=== PATIENT | male | born 1960 | race Caucasian/White ===

== ENCOUNTER 2017-10-12 16:02 | Emergency (ER) | payer BC ==
[2017-10-12 16:11] VITALS: RESP 18
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
[2017-10-12 23:17] VITALS: BP 150/89; PULSE 80; TEMP 97.3
== END 2017-10-12 23:41 | disposition home or self-care (01) ==
LOC: EC 16:02
DX: S00.03XA Contusion of scalp, initial encounter (principal); F10.10 Alcohol abuse, uncomplicated; R40.2142 Coma scale, eyes open, spontaneous, at arrival to emergency department; R40.2252 Coma scale, best verbal response, oriented, at arrival to emergency department; R40.2362 Coma scale, best motor response, obeys commands, at arrival to emergency department; E78.5 Hyperlipidemia, unspecified; I10 Essential (primary) hypertension; Z87.891 Personal history of nicotine dependence; Z53.29 Procedure and treatment not carried out because of patient's decision for other reasons; Z79.01 Long term (current) use of anticoagulants; Z79.899 Other long term (current) drug therapy; Y90.7 Blood alcohol level of 200-239 mg/100 ml; W01.10XA Fall on same level from slipping, tripping and stumbling with subsequent striking against unspecified object, initial encounter; Y92.511 Restaurant or cafe as the place of occurrence of the external cause
CPT/HCPCS: 82075; 99283

== ENCOUNTER → 2021-05-09 | Outpatient (CLI) | payer BC ==
--- NOTE | 2021-05-23 05:32 | MR ---
EXAMINATION TYPE: MR brain wo/w con DATE OF EXAM: 05/09/2021 COMPARISON: HISTORY: [facility] History, last in July 2020 CONTRAST: Standard multiplanar, multisequence MRI departmental protocol utilizing 7 mL intravenous Gadavist armani olinium contrast. There is some cerebral cortical atrophy. There is no mass effect nor midline shift. There is no evide nce of intracranial hemorrhage. Brainstem is intact. There is 8 x 4 mm linear area of increased signa l in the right side of the tiki. This is nonenhancing. Sella turcica is intact. Corpus callosum is in tact. There is mild mucosal thickening in the ethmoid sinus. Diffusion images show no evidence of an acute infarct. Contrast images show no pathologic enhancement. There is normal enhancement of the venous sinuses. IMPRESSION: Mild atrophy. Small oval-shaped nonenhancing area of increased signal in the right side of the tiki n ot changed compared to old exam and could be a lacunar infarct. No acute intracranial abnormality.
== END | disposition home or self-care (01) ==
LOC: RADMRIMAIN 09:59
PROVIDERS: ATTEND Psychiatry & Neurology Neurology
DX: G31.9 Degenerative disease of nervous system, unspecified (principal)
CPT/HCPCS: 70553; A9585